=== PATIENT | female | born 1985 | race Caucasian/White ===

== ENCOUNTER 2019-11-18 00:14 | Emergency (ER) | payer OTHER ==
[2019-11-18] MEDS ORDERED: TETRACAINE HCL 0.5% OPH SOLN 4 ML OD ONE (01:48)
--- NOTE | 2019-11-18 01:52 | ER Document Report ---
ED Medical Screen (RME) - General Chief Complaint: Abrasion(s) Stated Complaint: ABRASION ON EYE Time Seen by Provider: 11/18/19 01:48 Primary Care Provider: KATIEEMPLOYEE [Primary Care Provider] - Follow up as needed Mode of Arrival: Ambulatory Information source: Patient Notes: 34-year-old female coming in today for possible corneal abrasion/corneal foreign body. She states that she was leaning over an artificial plant that had a tapered pointed end and it poked her in the eye. She was seen briefly by 1 of our nurse practitioners who advised her to sign in to be seen for full thorough eye exam. General exam: No acute distress Ophthalmologic: Injected conjunctiva right eye I have greeted and performed a rapid initial assessment of this patient. A comprehensive ED assessment and evaluation of the patient, analysis of test results and completion of the medical decision making process will be conducted by additional ED providers. Physical Exam - Vital signs Vitals: Temp Pulse Resp BP Pulse Ox 97.8 F 79 16 125/80 100 11/18/19 00:21 11/18/19 00:21 11/18/19 00:21 11/18/19 00:21 11/18/19 00:21 Course - Vital Signs Vital signs: Temp Pulse Resp BP Pulse Ox 97.8 F 79 16 125/80 100 11/18/19 00:21 11/18/19 00:21 11/18/19 00:21 11/18/19 00:21 11/18/19 00:21 Doctor's Discharge - Discharge Referrals: HEALTH,EMPLOYEE [Primary Care Provider] - Follow up as needed
--- NOTE | 2019-11-18 01:59 | ER Document Report ---
ED Eye Complaint - General Chief Complaint: Eye Problem Stated Complaint: ABRASION ON EYE Time Seen by Provider: 11/18/19 01:48 Primary Care Provider: ARNALDO DOMINIQUE MD [ACTIVE STAFF] - Follow up as needed Mode of Arrival: Ambulatory Information source: Patient Notes: Otherwise healthy 34-year-old female presenting to the emergency department concern for possible corneal abrasion. Patient reports approximately 9 hours prior to arrival she got struck in the face with a plant that had a spiky end on it. She reports she feels pain in her eye just above her eyelid on the right eye. She denies the use of any contact lenses. She reports no change in vision. - Related Data Home Medications: allergy, probiotic, Past Medical History - General Information source: Patient - Social History Smoking Status: Never Smoker Family History: Reviewed & Not Pertinent - Medical History Medical History: Negative Surgical Hx: Negative Review of Systems - Review of Systems Constitutional: No symptoms reported EENT: See HPI Cardiovascular: No symptoms reported Respiratory: No symptoms reported Gastrointestinal: No symptoms reported Genitourinary: No symptoms reported Female Genitourinary: No symptoms reported Musculoskeletal: No symptoms reported Skin: No symptoms reported Hematologic/Lymphatic: No symptoms reported Neurological/Psychological: No symptoms reported Physical Exam - Vital signs Vitals: Temp Pulse Resp BP Pulse Ox 97.8 F 79 16 125/80 100 11/18/19 00:21 11/18/19 00:21 11/18/19 00:21 11/18/19 00:21 11/18/19 00:21 - Notes Notes: PHYSICAL EXAMINATION: GENERAL: Well-appearing, well-nourished and in no acute distress. HEAD: Atraumatic, normocephalic. EYES: Pupils equal round extraocular movements intact, conjunctiva are slightly erythematous in the right eye. Small corneal abrasion noted with fluorescein uptake. ENT: Nares patent NECK: Normal range of motion LUNGS: No respiratory distress Musculoskeletal: Normal range of motion NEUROLOGICAL: Normal speech, normal gait. PSYCH: Normal mood, normal affect. SKIN: Warm, Dry, normal turgor, no rashes or lesions noted. Course - Re-evaluation Re-evalutation: Patient's exam consistent with corneal abrasion. She will be prescribed appropr iate medications. Encourage patient to follow-up with ophthalmology in the next 2 to 3 days for recheck. - Vital Signs Vital signs: Temp Pulse Resp BP Pulse Ox 98.2 F 69 15 126/75 H 100 11/18/19 02:50 11/18/19 02:50 11/18/19 02:50 11/18/19 02:50 11/18/19 02:50 Discharge - Discharge Clinical Impression: Corneal abrasion Qualifiers: Encounter type: initial encounter Laterality: right Qualified Code(s): S05.01XA - Injury of conjunctiva and corneal abrasion without foreign body, right eye, initial encounter Condition: Stable Disposition: HOME, SELF-CARE Additional Instructions: Corneal Abrasion You have a corneal abrasion, a scratch on the surface of the eye. The pain of a corneal abrasion feels like a sharp particle in the eye. Usually, antibiotics are placed in the eye to prevent infection. Occasionally, medication will be placed in the eye to dilate the pupil. This is done to relieve some of your discomfort and is only temporary. Pain medication may be required. Don't drive or operate machinery until you have the use of both your eyes. The abrasion usually is healed in one or two days. A follow-up examination to confirm healing is recommended. Call the doctor or return at once if you develop severe pain, decreasing vision, eye swelling, or purulent drainage. Please take medication as prescribed. Applying a ribbon of the erythromycin ointment into the right eye every 3-4 hours while awake. You may use 1 drop of the ketorolac eyedrops up to 4 times a day to help with inflammation. Call and make an appointment with your eye doctor or the one that we have given you the phone number for. Would like them to take a look at your eye later on this week. Return to the emergency department if any worsening symptoms develop as outlined above. Forms: Return to Work Referrals: ARNALDO DOMINIQUE MD [ACTIVE STAFF] - Follow up as needed
[2019-11-18] MEDS ORDERED: KETOROLAC TROMETHAMINE 0.45% 4 DROP/0.4 ML DROPERETTE OD ONE (02:11)
[2019-11-18] MEDS ORDERED: ERYTHROMYCIN 0.5% OPH OINTMENT 3.5 GM (ER DISP) OD PRN (02:11)
[2019-11-18 02:52] VITALS: BP 126/75
== END 2019-11-18 02:50 | disposition home or self-care (01) ==
LOC: ER 00:14
DX: S05.01XA Injury of conjunctiva and corneal abrasion without foreign body, right eye, initial encounter (principal); W22.8XXA Striking against or struck by other objects, initial encounter
CPT/HCPCS: 99283; J3490

== ENCOUNTER 2020-01-12 06:49 | Day surgery (SDC) | payer OTHER ==
[2020-01-07 12:14] VITALS: BP 103/72
[2020-01-07 13:01] LABS: HEMATOCRIT 38.3 % (36.0-47.0); HEMOGLOBIN 13.1 g/dL (12.0-15.5); MEAN CORPUSCULAR HEMOGLOBIN 30.5 pg (27.0-33.4); MEAN CORPUSCULAR HGB CONC 34.2 g/dL (32.0-36.0); MEAN CORPUSCULAR VOLUME 89 fl (80-97); PLATELET COUNT 256 10^3/uL (150-450); RED CELL DISTRIBUTION WIDTH 12.7 % (11.5-14.0); WHITE BLOOD COUNT 7.3 10^3/uL (4.0-10.5)
[2020-01-07 13:14] LABS: APPEARANCE,URINE CLEAR; BILIRUBIN,URINE NEGATIVE (NEGATIVE); COLOR,URINE YELLOW; GLUCOSE, URINE NEGATIVE (NEGATIVE); KETONES,URINE NEGATIVE (NEGATIVE); LEUKOCYTE ESTERASE,URINE NEGATIVE (NEGATIVE); NITRITE,URINE NEGATIVE (NEGATIVE); PROTEIN,URINE NEGATIVE (NEGATIVE); URINE SPECIFIC GRAVITY 1.026; UROBILINOGEN,URINE NEGATIVE mg/dL (<2.0)
[2020-01-07 13:25] LABS: ALBUMIN 4.7 g/dL (3.5-5.0); ALKALINE PHOSPHATASE 52 U/L (38-126); ANION GAP 9 (5-19); ASPARTATE AMINO TRANSFERASE 19 U/L (14-36); BILIRUBIN,DIRECT 0.1 mg/dL (0.0-0.4); BILIRUBIN,TOTAL 0.3 mg/dL (0.2-1.3); BLOOD UREA NITROGEN 14 mg/dL (7-20); CALCIUM 9.8 mg/dL (8.4-10.2); CARBON DIOXIDE 28 mmol/L (22-30); CHLORIDE 101 mmol/L (98-107); GLUCOSE 84 mg/dL (75-110); POTASSIUM 4.5 mmol/L (3.6-5.0); TOTAL PROTEIN 7.6 g/dL (6.3-8.2)
[~2020-01-12 06:49] MED LIST: CEFAZOLIN 1 GM/D5W RTU 1 GM/50 ML RTUPB IV PRN
[2020-01-12] MEDS ORDERED: MIDAZOLAM 2 MG/2 ML INJ ONE (07:15)
[2020-01-12] MEDS ORDERED: PROPOFOL INJ 200 MG/20 ML VIAL IV ONE (07:15)
[2020-01-12] MEDS ORDERED: FENTANYL CITRATE INJ/PF 100 MCG/2 ML AMPUL ONE (07:15)
[2020-01-12] MEDS ORDERED: MORPHINE SULFATE 10 MG/ML INJ ONE (07:15)
[2020-01-12] MEDS ORDERED: ONDANSETRON HCL INJ/PF 4 MG/2 ML SDV ONE (07:15)
[2020-01-12] MEDS ORDERED: DEXAMETHASONE SOD PHOSPHATE INJ 4 MG/1 ML VIAL ONE (07:15)
[2020-01-12] MEDS ORDERED: ROCURONIUM BROMIDE INJ 50 MG/5 ML VIAL IV ONE (07:16)
[2020-01-12] MEDS ORDERED: SUCCINYLCHOLINE CHLORIDE INJ 200 MG/10 ML VIAL ONE (07:16)
[2020-01-12] MEDS ORDERED: SUGAMMADEX SODIUM 200 MG/2 ML SDV IV ONE (07:16)
[2020-01-12] MEDS ORDERED: BUPIVACAINE HCL 0.25 % INJ/PF (2.5 MG/1 ML) 30 ML VIAL ONE (07:20)
[2020-01-12] MEDS ORDERED: KETOROLAC TROMETHAMINE INJ/PF 30 MG/1 ML SDV ONE (07:37)
[2020-01-12] MEDS ORDERED: ACETAMINOPHEN 1,000 MG/100 ML RTUPB IV ONE (07:37)
[2020-01-12] MEDS ORDERED: SCOPOLAMINE HYDROBROMIDE 1.5 MG PATCH.TD72 TD PRN (08:10)
[2020-01-12] MEDS ORDERED: LIDOCAINE 0.5% INJ-PF (5 MG/ML) 50 ML SDV SUBCUT PRN (08:10)
[2020-01-12] MEDS ORDERED: LACTATED RINGERS 1000 ML IV PRN (08:10)
--- NOTE | 2020-01-14 18:07 | Operative Report ---
Operative Report DATE OF SURGERY: 01/12/20 PREOPERATIVE DIAGNOSIS: Pelvic pain POSTOPERATIVE DIAGNOSIS: S/P Excision of left fallopian tube / prior left ectopic / Pelvic and abdominal ahesions OPERATION: D&C / Laparoscopy SURGEON: DELILAH HERNANDEZ ANESTHESIA: GA TISSUE REMOVED OR ALTERED: Endometrium COMPLICATIONS: None QUANTITATIVE BLOOD LOSS: 30 INTRAOPERATIVE FINDINGS: Extensive pelvic and abdominal adhesions with left ovary bound down to pelvic side wall PROCEDURE: Patient was brought into the OR and placed on the table in a supine position. She was then inducted under general anesthesia. She was repositioned in the dorsolithotomy position prepped and draped. A timeout was called. Bladder was drained of approximately 50 cc of clear yellow urine. Pelvic under anesthesia was performed. Weighted vaginal speculum was inserted in the vagina. Cervix is grasped on its anterior lip with a single-tooth tenaculum. Uterus was sounded to 7 cm. The cervix was dilated with Hegar dilators. An endometrial curettage was then carried out. Tenaculum probe was then inserted and attached to the anterior lip of the cervix. The other equipment was removed. Gloves were changed. Attention was turned toward the abdominal wall. Varies needle was introduced umbilically and carried through the various layers until abdominal cavity was entered. A drop of saline was placed on the varies needle. The abdominal wall was then picked up. The saline easily egressed into the peritoneal cavity. The varies needle was then connected to the insufflation hose. Opening pressures were 4 cm of water. Patient had approximately 3 L of CO2 injected to a pressure of 15 cm of water. The varies needle was removed. A small incision was made infraumbilically. Through this incision a trocar and sleeve were inserted. The trocar was removed and through the sleeve a laparoscope was inserted. A second incision was then made suprapubically. Through this incision a trocar and sleeve were inserted. The trocar was removed and through the sleeve a probe was inserted. The contents of the pelvis and abdomen were then video recorded. Findings consisted of dense adhesions between the omentum and the left lateral abdominal wall. In addition the left fallopian tube was missing and the left ovary was bound down to the pelvic sidewall. The liver appeared to be normal. This terminated the procedure. The abdominal bowel probe which had been inserted through the suprapubic sleeve was then r emoved. The suprapubic sleeve was then removed. There was no evidence of active bleeding. The laparoscope was then removed. The infraumbilical sleeve was then removed. Patient then had quarter percent Marcaine injected in the suprapubic and the infra umbilical incisions. The fascia in both these incision was closed with interrupted 0 Vicryl. Skin edge in the subumbilical incision was closed using 4-0 Prolene in a running subcuticular stitch. Skin edges in the suprapubic incision were closed with interrupted 4-0 Prolene. Patient tolerated procedure well and had an estimated blood loss of somewhere between 30 and 35 cc.
== END 2020-01-12 10:03 | disposition home or self-care (01) ==
LOC: SC 06:49
PROVIDERS: ATTEND Obstetrics & Gynecology
DX: N99.4 Postprocedural pelvic peritoneal adhesions (principal); R10.2 Pelvic and perineal pain; R18.8 Other ascites; Z01.812 Encounter for preprocedural laboratory examination; Z20.828 Contact with and (suspected) exposure to other viral communicable diseases; Z87.891 Personal history of nicotine dependence; Z98.890 Other specified postprocedural states
CPT/HCPCS: 36415; 85027; 87635; 80053; 81001; 88305 ×2; 00840; 58120; J2250; J0690; J1100; J3010; J1885; J2270; J0330; J2405; J2704; J0131; C9803; 840; J3490